=== PATIENT | female | born 1980 | race Caucasian/White ===

== ENCOUNTER 2018-11-25 13:40 | Observation (INO) | payer OTHER ==
[~2018-11-25] VITALS: Ht 163 cm; Wt 86.2 kg
[~2018-11-25 13:40] MED LIST: IBUP-2071 PO; PREN1TAB80 PO
[2018-11-25 14:04] VITALS: BP 136/63
[2018-11-26] MEDS ORDERED: PREN1TAB80 PO (10:32)
== END 2018-11-25 16:20 | disposition home or self-care (01) ==
LOC: 4S 13:40
PROVIDERS: ADMIT Obstetrics & Gynecology; ATTEND Obstetrics & Gynecology
DX: O09.523 Supervision of elderly multigravida, third trimester (principal); Z3A.39 39 weeks gestation of pregnancy
CPT/HCPCS: 76805; 81002; G0378

== ENCOUNTER 2018-11-26 08:16 | Inpatient (IN) | payer OTHER ==
[~2018-11-26] VITALS: Ht 162.6 cm; Wt 86.2 kg
[2018-11-26] MEDS ORDERED: RINGERS SOLUTION,LACTATED 1,000 ML IV PRN (09:05)
[2018-11-26] MEDS ORDERED: METHYLERGONOVINE MALEATE 0.2 MG/ML VIAL IM PRN (09:15)
[2018-11-26] MEDS ORDERED: METOCLOPRAMIDE HCL 5 MG/ML 2 ML VIAL IVP PRN (09:15)
[2018-11-26] MEDS ORDERED: LIDOCAINE/PF 1% 30 ML VIAL INJ PRN (09:15)
[2018-11-26] MEDS ORDERED: CITRIC ACID/SODIUM CITRATE 30 ML SOLUTION UDCUP PO PRN (09:15)
[2018-11-26] MEDS ORDERED: FentaNYL CITRATE-PF 100 MCG/2 ML VIAL IVP PRN (09:15)
[2018-11-26] MEDS ORDERED: OXYGEN THERAPY IH SCH (09:15)
[2018-11-26 09:25] VITALS: BP 119/59
[2018-11-26 09:47] LABS: BASOPHILS % (AUTO) 0.6 % (0.0-2.0); EOSINOPHILS % (AUTO) 2.7 % (1.0-6.0); HEMATOCRIT 34.2 % (36-46); HEMOGLOBIN 11.3 g/dL (12.0-16.0); LYMPHOCYTES # (AUTO) 1.1 K/uL (1.0-4.8); LYMPHOCYTES % (AUTO) 17.3 % (22.0-44.0); MEAN CORPUSCULAR HEMOGLOBIN 28.8 pg (26.0-34.0); MEAN CORPUSCULAR HGB CONC 32.9 G/dL (31.0-37.0); MEAN CORPUSCULAR VOLUME 88 fL (80-100); MONOCYTES # (AUTO) 0.5 K/uL (0.1-1.0); MONOCYTES % (AUTO) 7.4 % (2.0-9.0); NEUTROPHILS # (AUTO) 4.5 K/uL (1.8-7.7); PLATELET COUNT (AUTO)-OB 105 K/uL (150-450); RED BLOOD CELL COUNT(AUTO) 3.91 MIL/uL (4.00-5.20); RED CELL DISTRIBUTION WIDTH 13.8 % (11.5-14.5)
[2018-11-26] MEDS: RINGERS SOLUTION,LACTATED 1,000 ML IV SCH ×2 (09:48→17:40)
[2018-11-26] MEDS: MISOPROSTOL 50 MCG TABLET VG SCH ×3 (09:49→17:41)
[2018-11-26] MEDS ORDERED: PREN1TAB80 PO (10:32)
[2018-11-26] MEDS ORDERED: OXYTOCIN 30 UNITS/LACT RINGERS 500 ML IV PRN (20:00)
[2018-11-27] MEDS: RINGERS SOLUTION,LACTATED 1,000 ML IV SCH ×2 (01:14→06:12)
[2018-11-27] MEDS ORDERED: ROPIVACAINE HCL/PF 0.2% 100 ML ED ONE (01:25)
[2018-11-27] MEDS ORDERED: LIDOCAINE/PF 2% 5 ML VIAL ONE (01:25)
[2018-11-27] MEDS ORDERED: NALBUPHINE HCL 10 MG/ML VIAL IVP PRN (02:00)
[2018-11-27] MEDS ORDERED: ONDANSETRON HCL 4 MG/2 ML VIAL IVP PRN (02:00)
[2018-11-27] MEDS ORDERED: DiphenhydrAMINE HCL 50 MG/ML VIAL IVP PRN (02:00)
[2018-11-27] MEDS ORDERED: ROPIVACAINE HCL/PF 0.2% 100 ML ED PRN (02:00)
[2018-11-27] MEDS ORDERED: LANOLIN 7 GM OINTMENT TP PRN ×2 (09:45)
[2018-11-27] MEDS ORDERED: MAGNESIUM HYDROXIDE SUSPENSION 30 ML UDCUP PO PRN (09:45)
[2018-11-27] MEDS ORDERED: GLYCERIN/WITCH HAZEL LEAF 40 PADS JAR TP PRN ×2 (09:45)
[2018-11-27] MEDS ORDERED: LIDOCAINE/PF 1% 30 ML VIAL INJ PRN (09:45)
[2018-11-27] MEDS ORDERED: OxyCODONE HCL/ACETAMINOPHEN 5-325 MG TABLET PO PRN ×4 (09:45)
[2018-11-27] MEDS ORDERED: BENZOCAINE 20%/MENTHOL 56 GM SPRAY CANISTER TP PRN (09:45)
[2018-11-27] MEDS ORDERED: OXYTOCIN 30 UNITS/LACT RINGERS 500 ML IV ONE (09:45)
[2018-11-27] MEDS: IBUPROFEN 800 MG TABLET PO PRN (18:45)
[2018-11-28 05:56] LABS: BASOPHILS % (AUTO) 0.4 % (0.0-2.0); EOSINOPHILS % (AUTO) 3.1 % (1.0-6.0); HEMATOCRIT 30.3 % (36-46); LYMPHOCYTES # (AUTO) 1.8 K/uL (1.0-4.8); LYMPHOCYTES % (AUTO) 20.3 % (22.0-44.0); MEAN CORPUSCULAR VOLUME 88 fL (80-100); MONOCYTES # (AUTO) 0.6 K/uL (0.1-1.0); MONOCYTES % (AUTO) 6.4 % (2.0-9.0); NEUTROPHILS # (AUTO) 6.1 K/uL (1.8-7.7); NEUTROPHILS % (AUTO) 69.8 % (40.0-70.0); RED BLOOD CELL COUNT(AUTO) 3.45 MIL/uL (4.00-5.20); RED CELL DISTRIBUTION WIDTH 13.7 % (11.5-14.5)
[2018-11-28 06:50] LABS: PLATELET COUNT (AUTO)-OB 88 K/uL (150-450)
[2018-11-28 08:11] LABS: BASOPHILS % (AUTO) 0.4 % (0.0-2.0); EOSINOPHILS % (AUTO) 3.1 % (1.0-6.0); HEMATOCRIT 31.8 % (36-46); HEMOGLOBIN 10.4 g/dL (12.0-16.0); LYMPHOCYTES # (AUTO) 1.3 K/uL (1.0-4.8); LYMPHOCYTES % (AUTO) 16.1 % (22.0-44.0); MEAN CORPUSCULAR HEMOGLOBIN 28.9 pg (26.0-34.0); MEAN CORPUSCULAR HGB CONC 32.7 G/dL (31.0-37.0); MEAN CORPUSCULAR VOLUME 88 fL (80-100); MONOCYTES # (AUTO) 0.5 K/uL (0.1-1.0); MONOCYTES % (AUTO) 5.6 % (2.0-9.0); NEUTROPHILS % (AUTO) 74.8 % (40.0-70.0); RED CELL DISTRIBUTION WIDTH 13.8 % (11.5-14.5)
[2018-11-28 08:15] LABS: PLATELET COUNT (AUTO)-OB 98 K/uL (150-450)
[2018-11-28] MEDS ORDERED: ACET-66 PO (08:50)
[2018-11-28] MEDS ORDERED: DSS100 PO (08:51)
[2018-11-28] MEDS: IBUPROFEN 800 MG TABLET PO PRN (11:02)
== END 2018-11-28 13:30 | disposition home or self-care (01) | DRG 807 ==
LOC: OBSVTOIN 08:16 → 4S 08:16
PROVIDERS: ADMIT Obstetrics & Gynecology; ATTEND Obstetrics & Gynecology
PROC: 10907ZC Drainage of Amniotic Fluid, Therapeutic from Products of Conception, Via Natural or Artificial Opening (ICD-10-PCS; principal; 2018-11-27)
PROC: 10E0XZZ Delivery of Products of Conception, External Approach (ICD-10-PCS; 2018-11-27)
PROC: 0HQ9XZZ Repair Perineum Skin, External Approach (ICD-10-PCS; 2018-11-27)
PROC: 3E0R3BZ Introduction of Anesthetic Agent into Spinal Canal, Percutaneous Approach (ICD-10-PCS; 2018-11-27)
PROC: 00HU33Z Insertion of Infusion Device into Spinal Canal, Percutaneous Approach (ICD-10-PCS; 2018-11-27)
DX: O70.0 First degree perineal laceration during delivery (principal); Z37.0 Single live birth; O69.81X0 Labor and delivery complicated by cord around neck, without compression, not applicable or unspecified; Z3A.39 39 weeks gestation of pregnancy
CPT/HCPCS: 86850; 86900; 86901; J2590; J2795; J3490; J7120